=== PATIENT | female | born 1975 | race Two or more races ===

== ENCOUNTER 2021-09-14 07:29 | Inpatient (IN) | payer MEDICAID, OTHER ==
[~2021-09-14] VITALS: Ht 162.6 cm; Wt 100.0 kg
[2021-09-14] MEDS ORDERED: LORazepam 2MG/ML-1ML VIAL IV PRN (21:00)
[2021-09-14] MEDS ORDERED: SODIUM CHLORIDE 0.9% 1,000 ML IV ONE (21:00)
[2021-09-14 22:09] LABS: Basophils # (auto) 0.1 10 ^3/uL (0-0.2); Basophils % (auto) 0.7 % (0.0-2.0); Eosinophils # (auto) 0.1 10 ^3/uL (0-0.8); Eosinophils % (auto) 1.7 % (0.0-7.0); Hematocrit 36.7 % (36.0-46.0); Hemoglobin 11.7 g/dL (12.2-16.2); Lymphocytes # (auto) 1.8 10 ^3/uL (0.4-5.4); Lymphocytes % (auto) 21.3 % (10.0-50.0); Mean Corpuscular Hgb Conc. 31.9 g/dL (32.0-36.0); Mean Corpuscular Volume 72.2 fL (80.0-100.0); Monocytes # (auto) 0.5 10 ^3/uL (0-1.3); Monocytes % (auto) 6.6 % (0.0-12.0); Neutrophils # (auto) 5.8 10 ^3/uL (1.6-8.6); Neutrophils % (auto) 69.7 % (37.0-80.0); Nucleated Red Blood Cells % 0.1 %; Red Blood Cells 5.08 10^6/uL (4.0-5.20); Red Cell Distribution Width 18.9 % (11.8-14.3); White Blood Cell 8.3 10^3/uL (4.4-10.8)
[2021-09-14 22:27] LABS: Albumin 4.1 g/dL (3.4-5.0); BUN/Creatinine Ratio 18.4; Potassium 3.6 mmol/L (3.5-5.1)
[2021-09-14 22:28] LABS: INR 0.99 (0.9-1.15)
[2021-09-14 22:30] LABS: Bilirubin, Total 0.2 mg/dL (0.2-1.0); Total Protein 8.3 g/dL (6.4-8.2)
[2021-09-14] MEDS ORDERED: HYDROcodone-ACET 5/325MG TAB PO PRN (23:00)
[2021-09-14] MEDS ORDERED: DOCUSATE SOD 100 MG CAP PO PRN (23:00)
[2021-09-14] MEDS ORDERED: ONDANSETRON HCL 4 MG/2 ML VIAL IV PRN (23:00)
[2021-09-14] MEDS ORDERED: DEXTROSE (50%) 50ML SYRG IV PRN (23:00)
[2021-09-14] MEDS ORDERED: NITROGLYCERIN 0.4 MG SL TAB SL PRN (23:45)
[2021-09-14] MEDS ORDERED: MORPHINE SULFATE INJ 2 MG/ml SYRG IV PRN (23:45)
[2021-09-15 04:50] LABS: Eosinophils # (auto) 0.1 10 ^3/uL (0-0.8); Hemoglobin 10.8 g/dL (12.2-16.2); Mean Corpuscular Volume 72.4 fL (80.0-100.0)
[2021-09-15 04:53] LABS: Basophils # (auto) 0 10 ^3/uL (0-0.2); Basophils % (auto) 0.7 % (0.0-2.0); Eosinophils % (auto) 1.9 % (0.0-7.0); Hematocrit 33.5 % (36.0-46.0); Lymphocytes % (auto) 17.8 % (10.0-50.0); Mean Corpuscular Hemoglobin 23.2 pg (28.0-32.0); Mean Corpuscular Hgb Conc. 32.1 g/dL (32.0-36.0); Monocytes # (auto) 0.6 10 ^3/uL (0-1.3); Monocytes % (auto) 9.8 % (0.0-12.0); Neutrophils % (auto) 69.8 % (37.0-80.0); Nucleated Red Blood Cells % 0.1 %; Red Blood Cells 4.63 10^6/uL (4.0-5.20); Red Cell Distribution Width 18.7 % (11.8-14.3); White Blood Cell 5.7 10^3/uL (4.4-10.8)
[2021-09-15 05:01] LABS: Albumin 3.4 g/dL (3.4-5.0); Calcium 8.4 mg/dL (8.5-10.1); Potassium 3.5 mmol/L (3.5-5.1)
[2021-09-15 05:05] LABS: BUN/Creatinine Ratio 21.2; Bilirubin, Total 0.2 mg/dL (0.2-1.0); Total Protein 6.9 g/dL (6.4-8.2)
[2021-09-15] MEDS: InsuLIN REG 1unit/0.01ml Soln (100units/ml) SC SCH ×4 (07:46→21:34)
[2021-09-15] MEDS: ACCU-CHEK COMFORT CURVE STRIP VI SCH ×4 (07:46→21:34)
[2021-09-15] MEDS: SODIUM CHLOR 0.9% PF (SALINE LOCK) 10ML VIAL/SYR IV SCH ×3 (07:46→21:34)
[2021-09-15 09:00] VITALS: BP 118/69
[2021-09-15] MEDS: ENOXAPARIN SOD 40 MG/0.4 ML SYRINGE SC SCH (10:44)
[2021-09-15] MEDS: ACETAMINOPHEN 325 MG TAB PO PRN ×2 (10:44→20:27)
[2021-09-15 13:00] VITALS: BP 109/76
[2021-09-15 15:36] VITALS: BP 118/69
[2021-09-15] MEDS ORDERED: IBUP800T26 PO (15:49)
[2021-09-15] MEDS ORDERED: METF-372 PO (15:49)
[2021-09-15] MEDS ORDERED: SIMV10TA84 PO (15:49)
[2021-09-15] MEDS ORDERED: KETO0.5S31 LEFTEYE (15:49)
[2021-09-15] MEDS ORDERED: LOS25T PO (15:49)
[2021-09-15] MEDS ORDERED: ACET250T3 PO (15:49)
[2021-09-15] MEDS ORDERED: ERTU5TAB PO (15:49)
[2021-09-15 17:00] VITALS: BP 125/88
[2021-09-15 22:00] VITALS: BP 105/63
[2021-09-16 00:14] LABS: INR 1.04 (0.9-1.15); Partial Thromboplastin Time 40.2 sec (23.6-33.0)
[2021-09-16] MEDS: ACETAMINOPHEN 325 MG TAB PO PRN ×2 (02:43→16:22)
[2021-09-16 05:00] VITALS: BP 108/62
[2021-09-16] MEDS: InsuLIN REG 1unit/0.01ml Soln (100units/ml) SC SCH (05:51)
[2021-09-16] MEDS: SODIUM CHLOR 0.9% PF (SALINE LOCK) 10ML VIAL/SYR IV SCH ×2 (05:51→12:41)
[2021-09-16] MEDS: ACCU-CHEK COMFORT CURVE STRIP VI SCH (05:52)
[2021-09-16 06:29] LABS: Eosinophils # (auto) 0.1 10 ^3/uL (0-0.8); Hematocrit 33.3 % (36.0-46.0); Hemoglobin 10.9 g/dL (12.2-16.2); Mean Corpuscular Hemoglobin 23.3 pg (28.0-32.0); Monocytes # (auto) 0.6 10 ^3/uL (0-1.3); Nucleated Red Blood Cells % 0.1 %; Red Blood Cells 4.68 10^6/uL (4.0-5.20); Red Cell Distribution Width 18.9 % (11.8-14.3)
[2021-09-16 06:32] LABS: Basophils # (auto) 0.1 10 ^3/uL (0-0.2); Basophils % (auto) 0.7 % (0.0-2.0); Lymphocytes # (auto) 1.3 10 ^3/uL (0.4-5.4); Lymphocytes % (auto) 17.3 % (10.0-50.0); Mean Corpuscular Hgb Conc. 32.8 g/dL (32.0-36.0); Mean Corpuscular Volume 71.2 fL (80.0-100.0); Monocytes % (auto) 8.6 % (0.0-12.0); Neutrophils # (auto) 5.3 10 ^3/uL (1.6-8.6); Neutrophils % (auto) 72.4 % (37.0-80.0); White Blood Cell 7.4 10^3/uL (4.4-10.8)
[2021-09-16 06:49] LABS: Calcium 8.8 mg/dL (8.5-10.1); Potassium 3.8 mmol/L (3.5-5.1)
[2021-09-16 06:51] LABS: BUN/Creatinine Ratio 23.3
[2021-09-16 08:00] VITALS: BP_SYST 105; BP_SYST 115; BP_DIAS 82
[2021-09-16] MEDS: ENOXAPARIN SOD 40 MG/0.4 ML SYRINGE SC SCH (09:42)
[2021-09-16 12:48] VITALS: BP 142/84
[2021-09-16 12:50] VITALS: BP 93/53
[2021-09-16 17:04] VITALS: BP 118/72
[2021-09-16] MEDS: metFORMIN HYDROCHLORIDE 500 MG TAB PO SCH (19:02)
[2021-09-16 22:00] VITALS: BP 109/70
[2021-09-16 23:54] LABS: CSF White Blood Cells 0 CUMM (0-5)
[2021-09-17] MEDS: SODIUM CHLOR 0.9% PF (SALINE LOCK) 10ML VIAL/SYR IV SCH ×4 (03:43→20:59)
[2021-09-17 05:00] VITALS: BP 108/70
[2021-09-17 06:23] LABS: Basophils # (auto) 0 10 ^3/uL (0-0.2); Eosinophils # (auto) 0.1 10 ^3/uL (0-0.8); Lymphocytes # (auto) 1.3 10 ^3/uL (0.4-5.4); Lymphocytes % (auto) 25.9 % (10.0-50.0); Monocytes # (auto) 0.6 10 ^3/uL (0-1.3); Neutrophils % (auto) 59.9 % (37.0-80.0)
[2021-09-17 06:26] LABS: Basophils % (auto) 0.6 % (0.0-2.0); Eosinophils % (auto) 1.4 % (0.0-7.0); Hematocrit 32.4 % (36.0-46.0); Hemoglobin 10.7 g/dL (12.2-16.2); Mean Corpuscular Hgb Conc. 33.1 g/dL (32.0-36.0); Monocytes % (auto) 12.2 % (0.0-12.0); Nucleated Red Blood Cells % 0.1 %; Red Blood Cells 4.59 10^6/uL (4.0-5.20); Red Cell Distribution Width 18.7 % (11.8-14.3)
[2021-09-17 06:44] LABS: Calcium 8.8 mg/dL (8.5-10.1); Potassium 3.7 mmol/L (3.5-5.1)
[2021-09-17 06:46] LABS: BUN/Creatinine Ratio 20.8
[2021-09-17 06:50] LABS: Mean Corpuscular Hemoglobin 23.4 pg (28.0-32.0); Mean Corpuscular Volume 70.5 fL (80.0-100.0)
[2021-09-17] MEDS: metFORMIN HYDROCHLORIDE 500 MG TAB PO SCH ×2 (08:00→18:21)
[2021-09-17 09:05] VITALS: BP 130/83
[2021-09-17] MEDS: ENOXAPARIN SOD 40 MG/0.4 ML SYRINGE SC SCH (10:14)
[2021-09-17] MEDS ORDERED: ACET250T3 PO (10:30)
[2021-09-17 13:04] VITALS: BP 119/59
[2021-09-17 14:04] LABS: Protein, CSF 75.2 mg/dL (15-45)
[2021-09-17 15:29] VITALS: BP 119/59
== END 2021-09-17 22:35 | disposition home or self-care (01) | DRG 58 ==
LOC: ER 07:29 → EDBD 07:29 → OVERFLOW 23:40 → CENTRAL 09-15 08:38
PROVIDERS: ADMIT Nurse Practitioner Family; ATTEND Internal Medicine Pulmonary Disease
PROC: 009U3ZZ Drainage of Spinal Canal, Percutaneous Approach (ICD-10-PCS; principal; 2021-09-16)
DX: G93.2 Benign intracranial hypertension (principal); E11.9 Type 2 diabetes mellitus without complications; E66.9 Obesity, unspecified; H54.62 Unqualified visual loss, left eye, normal vision right eye; Z20.822 Contact with and (suspected) exposure to COVID-19; H53.9 Unspecified visual disturbance; Z79.899 Other long term (current) drug therapy; Z85.42 Personal history of malignant neoplasm of other parts of uterus; Z90.710 Acquired absence of both cervix and uterus; Z90.49 Acquired absence of other specified parts of digestive tract; Z68.37 Body mass index [BMI] 37.0-37.9, adult; Z79.84 Long term (current) use of oral hypoglycemic drugs
CPT/HCPCS: 36415; 70542; 70553; 80048; 80053; 80061; 82945; 82962; 83036; 84157; 85025; 85610; 85730; 87070; 87205; 89051; 96361; 96374; G0378